=== PATIENT | female | born 2000 | race Hispanic/Latino ===

== ENCOUNTER 2023-08-04 20:30 | Emergency (ER) | payer SELFPAY ==
[~2023-08-04] VITALS: Ht 175.3 cm; Wt 84.0 kg
[2023-08-04 21:10] LABS: BASOPHILS 0.4 % (0-2); EOSINOPHILS 0.2 % (0-6); HEMATOCRIT 41.1 % (35.0-50.0); LYMPHOCYTES 17.1 % (24-44); MCH 29.3 (27-36); MCHC 34.2 g/dl (30-36); MCV 85.6 fl (81-99); MONOCYTES 8.5 % (0-12); NEUTROPHILS 73.8 % (39-80); PLATELET COUNT 420 K/uL (140-440); RDW 13.3 (10.5-15.0)
[2023-08-04 21:26] LABS: ALBUMIN 3.7 g/dL (3.4-5.0); ALBUMIN/GLOBULIN RATIO 0.69 (1.1-2.4); ANION GAP 18.5 (7-21); BILIRUBIN, TOTAL 0.5 ng/dL (0.2-1.0); BUN/CREATININE RATIO 11.86 (6.0-28.6); CALCIUM 9.3 mg/dL (8.5-10.1); CREATININE, SERUM 0.59 mg/dL (0.55-1.02); POTASSIUM 3.5 mmol/L (3.5-5.1); PROTEIN, TOTAL 9.1 g/dL (6.4-8.2)
[2023-08-04] MEDS ORDERED: AMOX TR-K CLV1 EAC1 PO (21:54)
--- OUTSIDE RECORDS SUMMARY | 2023-08-04 21:54 | XMS ---
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 - 2 Visits in 30 Days CARE PROVIDERS -Elena- Dentist: Thread [facility]er [facility] PHONE: [phone] Renita has no Care Guidelines for this patient. Verna VISIT COUNT (12 MO.) [address] [place] [address] TOTAL 2 NOTE: Visits indicate total known visits. ED/UCC VISIT TRACKING (12 MO.) 08/04/2023 20:31 [facility] TYPE: Emergency COMPLAINT: - SOB 08/03/2023 18:58 [facility] TYPE: Emergency DIAGNOSES: - Periapical abscess without sinus - Facial Numbness - RIGHT FACIAL NUMBNESS CAN'T FEEL THROAT;UNABLE TO SWALLOW INPATIENT VISIT TRACKING (12 MO.) No inpatient visits to display in this time frame [email or web address]
[2023-08-04 22:07] VITALS: BP 135/75
== END 2023-08-04 22:07 | disposition home or self-care (01) ==
LOC: ED 20:30
PROVIDERS: Emergency Medicine
DX: R22.0 Localized swelling, mass and lump, head (principal); J01.90 Acute sinusitis, unspecified
CPT/HCPCS: 36415; 70491; 80053; 85025; J1885; J7030; Q9967